=== PATIENT | male | born 1960 | race Caucasian/White ===

== ENCOUNTER 2018-07-24 09:00 | Inpatient (IN) | payer BC ==
[2018-09-04] MEDS ORDERED: FAMOTIDINE 20MG TABLET PO ONE (06:00)
[2018-09-04] MEDS ORDERED: VANCOMYCIN HCL 1,000 MG in DEXTROSE 5 % IN WATER 250 ML IVPB ONE ×2 (06:00)
[2018-09-04] MEDS ORDERED: METOCLOPRAMIDE 10 MG TABLET PO ONE (06:00)
[2018-09-04] MEDS ORDERED: CEFAZOLIN 1 Gram 1 GM/50 ML BAG IVPB ONE (06:00)
[2018-09-04] MEDS ORDERED: CELECOXIB 100 MG CAPSULE PO ONE (06:00)
[2018-09-04] MEDS ORDERED: CEFAZOLIN 2 Gram 2 GM/50 ML BAG IVPB ONE (06:00)
[2018-09-04] MEDS ORDERED: MECLIZINE 25 MG TABLET PO ONE (06:00)
[2018-09-04] MEDS ORDERED: RINGERS SOLUTION,LACTATED 1,000 ML IV ONE ×3 (09:15→13:09)
[2018-09-04 09:42] LABS: ABO GROUP AB; ANTIBODY SCREEN NEGATIVE (NEGATIVE); RH TYPE POSITIVE
[2018-09-04] MEDS ORDERED: BUPIVACAINE 0.5% W/EPI MPF 30 ML VIAL SQ ONE (12:14)
[2018-09-04] MEDS ORDERED: DIPHENHYDRAMINE HCL 25 MG CAPSULE PO PRN (14:00)
[2018-09-04] MEDS ORDERED: ACETAMINOPHEN W/ CODEINE 300MG/60MG TABLET PO PRN ×2 (14:00)
[2018-09-04] MEDS ORDERED: NALOXONE 0.4 MG/1 ML VIAL IVP PRN (14:00)
[2018-09-04] MEDS ORDERED: GLYCOPYRROLATE 0.2 MG/ML ML IV ONE (14:00)
[2018-09-04] MEDS ORDERED: CEFAZOLIN 2 Gram 2 GM/50 ML BAG IVPB SCH (14:00)
[2018-09-04] MEDS ORDERED: KETAMINE HCL 100MG/1ML VIAL INJ ONE (14:00)
[2018-09-04] MEDS ORDERED: FENTANYL PF 100MCG/2ML VIAL IV ONE (14:00)
[2018-09-04] MEDS ORDERED: ONDANSETRON HCL IV 4 MG/2 ML VIAL IVP PRN (14:00)
[2018-09-04] MEDS ORDERED: MAGNESIUM HYDROXIDE 30 ML UDC PO PRN (14:00)
[2018-09-04] MEDS ORDERED: AL HYDROX/MAG HYDROX 30ML UD PO PRN (14:00)
[2018-09-04] MEDS ORDERED: HYDROMORPHONE HCL 2 MG/ML VIAL IV ONE (14:00)
[2018-09-04] MEDS ORDERED: HYDROMORPHONE HCL 2 MG/ML VIAL IM PRN (14:00)
[2018-09-04] MEDS ORDERED: MIDAZOLAM HCL 2MG/2ML VIAL IV ONE (14:00)
[2018-09-04] MEDS ORDERED: BISACODYL 10 MG SUPP RC PRN (14:00)
[2018-09-04] MEDS ORDERED: ZOLPIDEM TARTRATE 5 MG TABLET PO PRN (14:00)
[2018-09-04] MEDS ORDERED: TRAMADOL HCL 50 MG TABLET PO PRN (14:00)
[2018-09-04] MEDS ORDERED: LABETALOL HCL 5MG/ML, 20ML VIAL IV ONE (14:00)
[2018-09-04] MEDS ORDERED: HYDROCODONE/APAP 10/325 TABLET PO PRN ×2 (14:00)
[2018-09-04 14:30] LABS: HEMATOCRIT 35.5 % (42.0-52.0); HEMOGLOBIN 11.3 gm/dl (14.0-18.0)
[2018-09-04] MEDS ORDERED: NITROGLYCERIN 0.4 MG SL PRN (14:58)
[2018-09-04] MEDS ORDERED: ROPIVACAINE HCL (NAROPIN) /PF 5MG/ML 20ML VIAL IV ONE (15:18)
[2018-09-04] MEDS ORDERED: 0.9 % SODIUM CHLORIDE 10 ML VIAL IVP ONE (15:18)
[2018-09-04] MEDS ORDERED: DEXAMETHASONE 4 MG/ML 1ML VIAL IVP ONE (15:18)
[2018-09-04] MEDS: POTASSIUM CHLORIDE/D5-0.9%NACL 20 MEQ/1,000 ML BAG IV SCH (16:06)
[2018-09-04] MEDS: PATIENT OWN MED: LISINOPRIL 20 MG PO SCH ×2 (18:22→18:23)
[2018-09-04] MEDS: BRILINTA 90 MG PO SCH (18:22)
[2018-09-04] MEDS: PATIENT OWN MED: METOPROLOL SUCCINATE 100 MG PO SCH (18:23)
[2018-09-04] MEDS: PATIENT OWN MED: ATORVASTATIN 80 MG PO SCH ×2 (18:25→23:49)
[2018-09-04] MEDS: CEFAZOLIN 1G VIAL IVP SCH (21:03)
[2018-09-04] MEDS: DOCUSATE SODIUM 100 MG CAPSULE PO SCH (23:47)
[2018-09-04] MEDS: ACETAMINOPHEN 325 MG TAB PO PRN (23:47)
[2018-09-05] MEDS: POTASSIUM CHLORIDE/D5-0.9%NACL 20 MEQ/1,000 ML BAG IV SCH (02:25)
[2018-09-05] MEDS: CEFAZOLIN 1G VIAL IVP SCH ×2 (03:15→10:23)
[2018-09-05 06:47] LABS: HEMATOCRIT 35.8 % (42.0-52.0); HEMOGLOBIN 11.6 gm/dl (14.0-18.0)
[2018-09-05 07:03] LABS: BLOOD UREA NITROGEN 15 mg/dL (6-20); CREATININE 0.8 mg/dL (0.7-1.2); EST GLOMERULAR FILTRATION RATE > 60 mL/min; GLUCOSE,RANDOM 140 mg/dL (74-109)
[2018-09-05] MEDS: ACETAMINOPHEN 325 MG TAB PO PRN ×2 (07:16→13:10)
--- NOTE | 2018-09-05 08:41 | Operative Note ---
DATE OF SURGERY: 09/04/2018 PREOPERATIVE DIAGNOSIS: End-stage arthrosis of the left hip. POSTOPERATIVE DIAGNOSIS: End-stage arthrosis of the left hip. OPERATION: Cementless left total hip arthroplasty using [employer]hew components with a size 58 no-hole Reflection cup, 32 mm diameter 35-degree highly crosslinked liner, a size 17 high-offset cementless [place] stem with a +4 32 mm diameter Oxinium head. STAFF SURGEON: Weston Granda MD ANESTHESIA: Spinal. PREPARATION: Chloraprep. INDIVIDUAL CONSIDERATIONS: This man is morbidly obese and he had a large frame. His body mass index was well above 40. It was very difficult exposure because of his obesity and his large frame. Because of this, it took almost twice as long to do the procedure and there was extra blood loss because of this. PROCEDURE: The patient was taken to the operating room, placed supine on the operating room table. He had a successful induction of spinal anesthetic. He was then placed on his side left side up. His left leg and hip were prepped and draped in the usual fashion. The patient had direct posterior approach to the hip. Sharp dissection carried down through skin and subcutaneous tissues. Small veins were coagulated with a Bovie. The tensor gluteal fascia was opened along the entire length of the incision, and deep retractors were placed. Short external rotators were identified of piriformis fossa and removed. This exposed the posterior capsule. Posterior capsulectomy was performed. It was very difficult to expose it because I could hardly internally rotate his hip. I tried to dislocate the hip but there were huge osteophytes surrounding the head. I had to take an osteotome and remove them posteriorly, inferiorly, and superiorly. Once I did that off the acetabulum, I was able to dislocate the hip posteriorly. He had a huge head which was markedly deformed. A femoral neck cut was then made roughly a fingerbreadth above the lesser trochanter, probably a little more distal to that. A rim capsulectomy was performed. Starting with a 49 mm reamer to medialize, I went just about to the medial wall and then reamed to the introitus, a 57 for a 58 cup. After irrigation, I impacted a size 58 no-hole Reflection cup in 20 degrees of forward flexion and about 40 degrees of abduction using the extraarticular alignment guide and bony landmarks. There was solid cementless fixation. Because of his size, I could not get the screwdriver to fit to put the cap screw, so I abandoned it. After irrigation, I impacted a 32 mm diameter 35-degree offset liner with the offset primarily posteriorly and slightly inferiorly. This gave an excellent stable acetabular construct, and this was packed off. The proximal femur was delivered into the wound, and box cutting osteotome was used to remove the proximal metaphyseal bone. Mid stem reaming was done to about a size 17. I just started feeling cortex maybe at 14-15. Broaching to 17 which was solid calcar reaming. With a +4, there was absolute stability. I removed the trial, irrigated it out, and impacted a high offset size 17 [place] stem with solid cementless fixation, solid calcar contact. I then trialed it again with a +4, had absolute stability. Dried the Herminio taper, impacted the +4 Oxinium head, reduced the hip. I had absolute anterior stability with full extension and external rotation. I flexed him up to his pedunculus, which is only up to maybe about 90 degrees, and internally rotated him to 90 and still had stability. Hemostasis was obtained with a Bovie. Thorough irrigation with Betadine and saline. The sciatic nerve was inspected and found to be completely intact. The patient did receive 1 g of tranexamic acid preoperatively. I mixed 1 g of tranexamic acid with 30 mL of saline and placed this deep in the fascia. The fascia was then closed with a running #2 quill, subcu was closed in multiple layers with 0 quill, skin was closed with brent. I did infiltrate the skin and subcutaneous tissue with 30 mL of 0.5% Marcaine with epinephrine. The patient tolerated the procedure well. Needle and sponge counts were correct. Estimated blood loss was about 1700 mL. We will check a hemoglobin in recovery. There were no complications. [facility]ENTERKel[facility]
[2018-09-05] MEDS ORDERED: TRANEXAMIC ACID 1,000 MG/10 ML ML IV ONE ×2 (09:33→13:09)
[2018-09-05] MEDS ORDERED: RIVAROXABAN 10 MG TABLET PO SCH (10:00)
[2018-09-05] MEDS ORDERED: FERROUS SULFATE 325 MG TAB PO SCH (10:00)
[2018-09-05] MEDS ORDERED: PATIENT OWN MED: ASPIRIN 81 MG PO SCH (10:00)
[2018-09-05] MEDS: DOCUSATE SODIUM 100 MG CAPSULE PO SCH (10:13)
[2018-09-05] MEDS: BRILINTA 90 MG PO SCH (10:15)
[2018-09-05] MEDS: PATIENT OWN MED: LISINOPRIL 20 MG PO SCH (10:16)
[2018-09-05] MEDS: PATIENT OWN MED: METOPROLOL SUCCINATE 100 MG PO SCH (10:16)
--- NOTE | 2018-09-05 12:15 | Rehab Evaluation ---
Patient Information - Patient Information Diagnosis: DJD left hip Ordered Treatment: OT Evaluate and Treat Status: Initial Evaluation Surgery: Yes (left total hip replacement) Date of Surgery: 09/04/18 Past Medical/Surgical Hx: PAST MEDICAL/SURGICAL HISTORY Past Surgical History right knee arthroscopy; 2 left shoulder sxs; pilonidal cystectomy; hydrocelectomy rt; cardiac cath 2 yrs ago. PMH - Respiratory Hx Respiratory Disorders Yes Hx Sleep Apnea Yes Hx of CPAP Yes PMH - Cardiovascular Hx Cardiovascular Disorders Yes Hx Cardiac Catheterization Yes Hx Chest Pain Yes: 2 yrs ago "heartburn" c/o Hx Heart Attack Yes: 2 yrs ago Hx Hypertension Yes: meds good control Hx Coronary Stent Yes: 1 stent in [place] Exercise Tolerance Poor Comment: due to hip pain- poor exercise PMH - Neuro Hx Neurological Disorders Yes Hx Headaches Yes: once in awhile PMH - GI Hx Gastrointestinal Disorders Yes Hx Gastroesophageal Reflux Yes PMH - Hx Genitourinary Disorders No PMH - Endocrine Hx Endocrine Disorders No PMH - Musculoskeletal Hx Musculoskeletal Disorders Yes Hx Arthritis Yes: hips PMH - Psych Hx Psychiatric Problems No PMH - Hematology/Oncology Hx Hematology/Oncology Yes Disorders Hx Bruising Yes: on blood thinners since [place] 2 yrs ago Premorbid Status: Detail (Pt lives with spouse in a 2 story house with 4 steps and duy railings at the entrance. He is planning to stay on the main level temporarily. He has a tub/shower combination with an extended tub seat, no grab bars and a standard height toilet, no grab bars. He is planning to borrow a toilet riser from his sister. He is responsible for yard work and outdoor grilling. He has a 2 wheeled walker and a client finance analyst.) Precautions: [place], Fall, Other (total hip precautions) - Time With Patient Total Time Spent With Patient (Min): 45 Treatment Procedures: Detail (OT eval low complexity) Subjective Information - Subjective Information Per Patient Objective Data - Pain Pain Present: Yes (minimal pain) - Mental Status Patient Orientation: Oriented x3 - Visual Perception Appears within normal limits for therapeutic activities - ROM Within normal limits (Duy UE AROM WNL) - Strength/Tone Within normal limits (Duy UE strength WNL) - Coordination Appears within normal limits for therapeutic activities - Bed Mobility Independent (Ind with supine to sit and sit to supine) - Transfers Independent (Ind with sit to stand from EOB) - Balance Balance Sitting: Good Balance Standing: Good - Sensation Intact - ADL's/IADL's Detail (Pt educated and able to demonstrate learning of modified LE dressing techniques while maintaining total hip precautions. He was able to utilize client finance analyst, sock aid and long shoe horn to doff slipper socks and don socks. He was able to don tennis shoes with client finance analyst and long shoe horn although he required min assist for heel. Pt already had his shorts on but he was able to verbalize correct dressing technique. Pt reports his will be available to assist if needed. Reviewed shower safety and modifications, pt verbalized understanding. He did purchase a sock aid and long shoe horn prior to discharge.) Therapy Assessment - Therapy Assessment Detail (Ind with modified LE dressing techniques using adaptive equipment.) Problem List - Problem List Occupational Therapy Problem List: Detail (No current IP OT problems identified. ) Goals - Goals Occupational Therapy Goals: No current IP OT goals identified. Prognosis - Prognosis Good Plan - Plan Occupational Therapy Plan: No further IP OT recommended. Thank you for this referral.
[2018-09-05] MEDS ORDERED: 0.9 % SODIUM CHLORIDE 10 ML VIAL IVP ONE (13:09)
--- NOTE | 2018-09-05 16:13 | Rehab Evaluation ---
Patient Information - Patient Information Diagnosis: DJD left hip Ordered Treatment: PT Evaluate and Treat Status: Initial Evaluation Surgery: Yes (left total hip replacement) Date of Surgery: 09/04/18 Past Medical/Surgical Hx: PAST MEDICAL/SURGICAL HISTORY Past Surgical History right knee arthroscopy; 2 left shoulder sxs; pilonidal cystectomy; hydrocelectomy rt; cardiac cath 2 yrs ago. PMH - Respiratory Hx Respiratory Disorders Yes Hx Sleep Apnea Yes Hx of CPAP Yes PMH - Cardiovascular Hx Cardiovascular Disorders Yes Hx Cardiac Catheterization Yes Hx Chest Pain Yes: 2 yrs ago "heartburn" c/o Hx Heart Attack Yes: 2 yrs ago Hx Hypertension Yes: meds good control Hx Coronary Stent Yes: 1 stent in [place] Exercise Tolerance Poor Comment: due to hip pain- poor exercise PMH - Neuro Hx Neurological Disorders Yes Hx Headaches Yes: once in awhile PMH - GI Hx Gastrointestinal Disorders Yes Hx Gastroesophageal Reflux Yes PMH - Hx Genitourinary Disorders No PMH - Endocrine Hx Endocrine Disorders No PMH - Musculoskeletal Hx Musculoskeletal Disorders Yes Hx Arthritis Yes: hips PMH - Psych Hx Psychiatric Problems No PMH - Hematology/Oncology Hx Hematology/Oncology Yes Disorders Hx Bruising Yes: on blood thinners since [place] 2 yrs ago Premorbid Status: Detail (Pt lives with spouse in a 2 story house with 4 steps and hussein railings at the entrance. He is planning to stay on the main level temporarily. He has a tub/shower combination with an extended tub seat, no grab bars and a standard height toilet, no grab bars. He is planning to borrow a toilet riser from his sister. He is responsible for yard work and outdoor grilling. He has a 2 wheeled walker and a optical effects camera operator.) Precautions: [place], Fall, Other (total hip precautions) - Time With Patient Total Time Spent With Patient (Min): 30 Treatment Procedures: Detail (Initial Evaluation, Gait training) Subjective Information - Subjective Information Per Patient (The patient had minimal complaints of L knee pain.) Objective Data - Mental Status Patient Orientation: Oriented x3 - Visual Perception Appears within normal limits for therapeutic activities - ROM Not within normal limits (The patient's L hip pain was within total hip precautions. All other LE AROM was WNL.) - Strength/Tone Not within normal limits (The patient's L LE strength was not tested s/p surgery but was WFL ie: patient was able lift LE with supine to and from sit transfer. The patient's R LE strength was WNL.) - Bed Mobility Independent (The patient was independent with supine to and from sit transfer and scooting up in bed.) - Transfers Independent (The patient is independent with sit to and from stand transfer.) - Balance Balance Sitting: Good Balance Standing: Good - Gait Detail (The patient ambulated with front wheeled walker a distance of 134 feet x 1 independently WBAT on the L LE. The patient ambulated on stairs with use of railing and cane using proper technique with supervision for safety.) Therapy Assessment - Therapy Assessment Detail (The patient was independent with bed mobility, transfers and ambulation. The patient has met all inpatient PT goals and is discharged from inpatient PT.) Patient Education - Patient Education Teaching Topic: Exercise/Activity (The patient completed TKA HEP: supine hip abduction, heel slides, ankle pumps, quad sets, hamstring sets, gluteal sets.) Response: Return Demonstration Teaching Method: Demonstration, Handout Teaching Recipient: Patient Barriers To Learning: Age Related Problem List - Problem List Physical Therapy Problem List: Detail (Decreased L LE strength s/p surgery. Impaired ambulation s/p surgery.) Occupational Therapy Problem List: Detail (No current IP OT problems identified. ) Goals - Goals Physical Therapy Goals: The patient has met all inpatient PT goals. Occupational Therapy Goals: No current IP OT goals identified. Plan - Plan Physical Therapy Plan: The patient is discharged from inpatient PT and is to continue with Home PT. Occupational Therapy Plan: No further IP OT recommended. Thank you for this referral.
--- NOTE | 2018-09-07 10:00 | Discharge Summary ---
DATE OF ADMISSION: 09/04/2018 DATE OF DISCHARGE: 09/05/2018 FINAL DIAGNOSES/PRIMARY DIAGNOSES: 1. Endstage arthrosis of the left hip. 2. Operative blood loss anemia. OPERATIONS AND PROCEDURES: Cementless left total hip arthroplasty. HISTORY OF PRESENT ILLNESS: The patient is a delightful 57-year-old male who presents with profound endstage arthrosis of his left hip. He was admitted after a left total hip arthroplasty. Postoperatively, he did well. His hospital course was unremarkable. Discharge hemoglobin was 11.6. He will be given Tylenol 4 for pain, Xarelto, followed by his regular anti-platelet drugs after 4 days. A visiting nurse has been arranged. Home PT has been arranged. Sutures will be removed in 2 weeks. He will follow up in my office in 4 weeks. [place]
== END 2018-09-05 13:10 | disposition home health service (06) | DRG 470 ==
LOC: UNDOADMIN 09-04 08:38 → MEDSURG 09-04 08:38
PROVIDERS: ADMIT Orthopaedic Surgery; ATTEND Orthopaedic Surgery
PROC: 0SRB06A Replacement of Left Hip Joint with Oxidized Zirconium on Polyethylene Synthetic Substitute, Uncemented, Open Approach (ICD-10-PCS; principal; 2018-09-04 11:00)
DX: M16.12 Unilateral primary osteoarthritis, left hip (principal); I10 Essential (primary) hypertension; E78.00 Pure hypercholesterolemia, unspecified; Z79.01 Long term (current) use of anticoagulants; G47.33 Obstructive sleep apnea (adult) (pediatric); I25.10 Atherosclerotic heart disease of native coronary artery without angina pectoris; Z95.5 Presence of coronary angioplasty implant and graft; E66.01 Morbid (severe) obesity due to excess calories
CPT/HCPCS: 76942; 80048; 85014; 85018; 86850; 86900; 86901; C1776; J0690; J3480; J3490; J7060; J7120